=== PATIENT | female | born 1955 | race Caucasian/White ===

== ENCOUNTER 2021-02-22 09:11 | Outpatient (CLI) | payer MEDICARE, OTHER, SELFPAY ==
[2021-02-22 10:11] LABS: Basophils Absolute Auto 0.1 K/mm3 (0.0-0.1); Basophils Percent Auto 0.8 % (0.2-1.2); Eosinophils Absolute Auto 0.1 K/mm3 (0-0.3); Immature Granulocyte Absolute 0.03 K/mm3 (0.00-0.031); Immature Granulocyte Percent A 0.5 % (0-0.5); Lymphocytes Absolute Auto 1.86 K/mm3 (0.9-3.2); Lymphocytes Percent Auto 30.3 % (18.3-44.2); Mean Corpuscular HGB Conc 32.6 g/dl (32-36); Mean Corpuscular Volume 95.1 fl (80-100); Mean Platelet Volume 9.9 fl (7.4-10.4); Monocytes Absolute Auto 0.6 K/mm3 (0.1-0.6); Monocytes Percent Auto 9.1 % (2.6-8.5); Neutrophils Absolute Auto 3.5 K/mm3 (1.3-6.7); Neutrophils Percent Auto 57.3 % (45.5-73.1); Platelet Count Result 233 k/mm3 (150-375); Red Blood Count 4.52 M/mm3 (4.2-5.4); Red Cell Distribution Width 13.5 % (11.5-14.5); White Blood Count 6.1 K/mm3 (4.5-10.0)
[2021-02-22 10:23] LABS: Rheumatoid Factor < 8.6 IU/ML (<12)
[2021-02-22 10:28] LABS: CRP < 0.5 mg/dL (<1.0)
[2021-02-22 12:46] LABS: Erythrocyte Sedimentation Rate 47 mm/hr (0-20)
[2021-02-27 10:31] LABS: Anti Cyclic Citrullinated Pept <16 Units (<20)
== END 2021-02-22 09:12 | disposition home or self-care (01) ==
PROVIDERS: PCP Family Medicine; Visit Provider Orthopaedic Surgery
DX: M17.0 Bilateral primary osteoarthritis of knee (principal); M25.40 Effusion, unspecified joint
CPT/HCPCS: 36415; 85025; 85652; 86038; 86039; 86140; 86200; 86430

== ENCOUNTER 2021-09-30 09:32 | Outpatient (CLI) | payer MEDICARE, OTHER, SELFPAY ==
--- NOTE | ~2021-09-30 | XR_ITS ---
EXAMINATION: XR shoulder RT min 2V EXAM DATE: 09/30/2021 10:59 INDICATION: Arthritis. TECHNIQUE: Right shoulder axillary, frontal projections. There is no prior study for comparison. FINDINGS: There is no glenohumeral joint, mild acromioclavicular joint primary osteoarthritis. There are no acute right shoulder fractures or dislocations identified. There is no subcutaneous gas. The soft tissue is unremarkable. There are no radiopaque foreign bodies. IMPRESSION: Mild right acromioclavicular joint osteoarthritis. Reviewed, dictated and finalized at location B. SEAT COVERER
--- NOTE | ~2021-09-30 | XR_ITS ---
EXAMINATION: XR ankle LT 2V EXAM DATE: 09/30/2021 10:59 INDICATION: Arthritis. TECHNIQUE: Frontal and lateral projections of the left ankle. There is no prior study for compariso n. FINDINGS: There is small left calcaneal inferior spur. The ankle mortise appears intact. There are n o acute fractures or dislocations identified. There is no subcutaneous gas. The soft tissue is unre markable. There are no radiopaque foreign bodies. IMPRESSION: Small left calcaneal spur. Reviewed, dictated and finalized at location B. WEATHERIZING WORKER IMPRESSION: Small left calcaneal spur.
--- NOTE | ~2021-09-30 | XR_ITS ---
EXAMINATION: XR shoulder LT min 2V EXAM DATE: 09/30/2021 10:59 INDICATION: Arthritis. TECHNIQUE: Left shoulder frontal, axillary projections. Correlation is made to contralateral shoulde r same date. FINDINGS: There is mild acromioclavicular joint primary osteoarthritis. Left glenohumeral joint unrem arkable. There are no bony erosions identified. There are no acute fractures or dislocations identifi ed. There is no subcutaneous gas. The soft tissue is unremarkable. There are no radiopaque foreig n bodies. IMPRESSION: Mild left acromioclavicular joint osteoarthritis. Reviewed, dictated and finalized at location B. EL MACHINE OPERATOR
--- NOTE | ~2021-09-30 | XR_ITS ---
EXAMINATION: XR elbow LT 2V EXAM DATE: 09/30/2021 10:59 INDICATION: Arthritis. TECHNIQUE: Frontal and lateral projections of the left elbow Correlation is made to contralateral el bow same date. FINDINGS: Minimal bony productive changes at the epicondyles, enthesopathy less pronounced than cont ralateral side. The left elbow joint space is uniform and symmetric, no bony productive changes or er osions. No evidence of joint effusion. There are no acute fractures or dislocations identified. Ther e is no subcutaneous gas. The soft tissue is unremarkable. There are no radiopaque foreign bodies. IMPRESSION: Minimal left humeral epicondylar enthesopathy. Reviewed, dictated and finalized at location B. HOLOGY TECH
--- NOTE | ~2021-09-30 | XR_ITS ---
EXAMINATION: XR knee LT 2V EXAM DATE: 09/30/2021 10:59 INDICATION: Arthritis. TECHNIQUE: Frontal and lateral projections of the left knee. Correlation is made to contralateral kn ee same date. FINDINGS: There is moderate left knee medial tibiofemoral, mild lateral tibiofemoral and patellofemor al compartment primary osteoarthritis. No joint effusion. There are no acute fractures or dislocatio ns identified. There is no subcutaneous gas. The soft tissue is unremarkable. There are no radiop aque foreign bodies. IMPRESSION: Moderate left medial tibiofemoral compartment osteoarthritis. Reviewed, dictated and finalized at location B. MACIST APPRENTICE
--- NOTE | ~2021-09-30 | XR_ITS ---
EXAMINATION: XR hip BI wo pelvis, XR sacroiliac joints min 3V EXAM DATE: 09/30/2021 10:59 INDICATION: Arthritis. TECHNIQUE: Each hip imaged independently (separate right and also left hip) 'frog leg' and frontal p rojections for interpretation. Frontal and bilateral oblique projections of the sacroiliac joints. FINDINGS: No radiographic evidence of hip avascular necrosis. There is mild symmetric bilateral sacr oiliac and hip primary osteoarthritis. There are no bony erosions identified. There are no acute f ractures or dislocations identified. There is no subcutaneous gas. The soft tissue is unremarkable. There are no radiopaque foreign bodies. IMPRESSION: Mild symmetric bilateral hip, sacroiliac osteoarthritis. Reviewed, dictated and finalized at location B. CE MESSENGER HELPER IMPRESSION: Mild symmetric bilateral hip, sacroiliac osteoarthritis.
--- NOTE | ~2021-09-30 | XR_ITS ---
EXAMINATION: XR knee RT 2V EXAM DATE: 09/30/2021 10:59 INDICATION: Arthritis. TECHNIQUE: Frontal and lateral projections of the right knee. Correlation is made to contralateral k nee same date. FINDINGS: There is mild to moderate right knee medial tibiofemoral, patellofemoral primary osteoarthr itis. There are no acute fractures or dislocations identified. There is no subcutaneous gas. No nelia nt effusion. There are no radiopaque foreign bodies. IMPRESSION: Mild to moderate right knee osteoarthritis. Reviewed, dictated and finalized at location B. ER HOOKER
--- NOTE | ~2021-09-30 | XR_ITS ---
EXAMINATION: XR foot RT 2V EXAM DATE: 09/30/2021 10:59 INDICATION: Arthritis. TECHNIQUE: Frontal and lateral projections of the right foot. Correlation is made to contralateral f oot same date. FINDINGS: Small right calcaneal spur inferiorly. There is mild right 1st metatarsophalangeal joint p rimary osteoarthritis. There are no acute fractures or dislocations identified. There is no subcutan eous gas. The soft tissue is unremarkable. There are no radiopaque foreign bodies. Tibial plafond and anterior well-corticated erosion, correlate with ankle x-ray report same day. IMPRESSION: 1. Mild right 1st MTP osteoarthritis. 2. Small calcaneal spur. Reviewed, dictated and finalized at location B. E MECHANIC
--- NOTE | ~2021-09-30 | XR_ITS ---
EXAMINATION: XR foot LT 2V EXAM DATE: 09/30/2021 10:59 INDICATION: Arthritis. TECHNIQUE: Frontal and lateral projections of the left foot. Correlation is made to contralateral fo ot same date. FINDINGS: There is minimal left foot primary osteoarthritis. Joint space is otherwise uniform and s ymmetric. Small calcaneal spur inferiorly. There are no bony erosions identified. There are no acute fractures or dislocations identified. There is no subcutaneous gas. The soft tissue is unremarkable . There are no radiopaque foreign bodies. IMPRESSION: 1. Minimal left 1st MTP osteoarthritis. 2. Small calcaneal spur. Reviewed, dictated and finalized at location B. TRAINER
--- NOTE | ~2021-09-30 | XR_ITS ---
EXAMINATION: XR ankle RT 2V EXAM DATE: 09/30/2021 10:59 INDICATION: Arthritis. TECHNIQUE: Frontal and lateral projections of the right ankle. Correlation is made to contralateral ankle same date. FINDINGS: There is well-corticated erosion along the right tibial plafond anteriorly. This measures about 7 mm, is a benign finding which could be pressure erosion from noncalcified joint body, or gout (although no evidence of erosions on other joints imaged). This finding could also be caused by loca lized pigmented villonodular synovitis or tenosynovial giant cell tumor. No other erosions identified . There is small right calcaneal spur inferiorly. IMPRESSION: 1. Right tibial plafond periarticular pressure erosion, could be noncalcified joint body, localized PVNS, tenosynovial giant cell tumor. Consider MR ankle without and with contrast. 2. Small calcaneal spur. Reviewed, dictated and finalized at location B. T SUPERVISOR FILM PROCESSING IMPRESSION: 1. Right tibial plafond periarticular pressure erosion, could be noncalcified joint body, localized PVNS, tenosynovial giant cell tumor. Consider MR ankle wi thout and with contrast. 2. Small calcaneal spur.
--- NOTE | ~2021-09-30 | XR_ITS ---
EXAMINATION: XR elbow RT 2V EXAM DATE: 09/30/2021 10:59 INDICATION: Arthritis. TECHNIQUE: Right elbow frontal and lateral projections. Comparison made to contralateral elbow same day. FINDINGS: Mild bony productive change at the right humeral epicondyles, most consistent with enthesop athy. Elbow joint space is maintained and without bony productive changes or erosion. There are no ac [place] fractures or dislocations identified. There is no subcutaneous gas. The soft tissue is unremark able. There are no radiopaque foreign bodies. IMPRESSION: Mild right femoral epicondylar bony productive change, enthesopathy. Reviewed, dictated and finalized at location B. GER OCCUPATIONAL IMPRESSION: Mild right femoral epicondylar bony productive change, enthesopathy .
[2021-09-30 10:46] LABS: Add Urine Microscopic? YES; Appearance Urine Cloudy (Clear); Bilirubin Urine Negative (Negative); Blood Urine Negative (Negative); Color Urine Yellow (Yellow); Glucose Urine UA Negative (Negative); Ketones Urine Negative (Negative); Leukocyte Esterase Ur Trace LEU/UL (NEGATIVE); Mucus Urine Rare /lpf; Nitrate Urine Negative (Negative); Protein Urine 2+ mg/dL (Negative); Specific Grav Ur 1.014 (1.001-1.035); Squamous Epithelial Cell Urine Few /hpf (Few); Transitional Epi Cells Urine Rare /hpf (None Seen); Urobilinogen Urine Negative mg/dL (<2.0)
[2021-09-30 10:47] LABS: Alanine Aminotransferase 20 U/L (4-35); Albumin Level 4.2 g/dL (3.5-5.1); Alkaline Phosphatase 102 U/L (38-126); Anion Gap 7 mmol/L (8-16); Aspartate Amino Transferase 24 U/L (14-36); Bilirubin,Total 0.5 mg/dL (0.2-1.3); Blood Urea Nitrogen 24 mg/dL (7-17); CRP < 0.5 mg/dL (<1.0); Calcium 9.9 mg/dL (8.4-10.2); Carbon Dioxide 26 mmol/L (22-30); Chloride 104 mmol/L (98-107); Creatine Kinase 41 U/L (30-135); Estimated Glomerular Filt Rate > 60; Glucose 118 mg/dL (65-110); Magnesium 1.6 mg/dL (1.6-2.3); Potassium 4.2 mmol/L (3.4-5.0); Sodium 137 mmol/L (137-145); Uric Acid 6.5 mg/dL (2.5-7.5)
[2021-09-30 10:49] LABS: Hemoglobin A1C 5.6 % (<5.7)
[2021-09-30 10:55] LABS: Complement C3 131 mg/dL (88-165)
[2021-09-30 11:02] LABS: Free T4 Free Thyroxine 0.94 ng/mL (0.78-2.19); Vitamin D 25 Hydroxy 97.2 ng/mL
[2021-09-30 11:48] LABS: Folic Acid 13.3 ng/mL (2.76->20)
[2021-09-30 14:55] LABS: Erythrocyte Sedimentation Rate 24 mm/hr (0-20)
[2021-10-02 02:58] LABS: Anti Cardio Antibody IgM <2.0 MPL-U/mL (<20.0); Anti Cardiolipin Antibody IgA <2.0 APL-U/mL (<20.0); Anti Cardiolipin Antibody IgG <2.0 GPL-U/mL (<20.0)
[2021-10-02 18:06] LABS: Complement Total CH50 >60 U/mL (31-60)
[2021-10-03 03:33] LABS: Lupus dRVVT 1:1 Mix Interpreta Not Indicated; Lupus dRVVT Screen 32 sec (<=45); PTT-LA Screen 28 sec (<=40)
[2021-10-03 08:00] LABS: RNP Antibodies <1.0; SS-A <1.0; SS-B <1.0
[2021-10-03 08:59] LABS: Scleroderma 70 Antibody <1.0
== END 2021-09-30 09:33 | disposition home or self-care (01) ==
LOC: ANHLAB 09:45
PROVIDERS: PCP Family Medicine; Visit Provider Internal Medicine Rheumatology
DX: M77.8 Other enthesopathies, not elsewhere classified (principal); M15.9 Polyosteoarthritis, unspecified; R53.83 Other fatigue; E83.42 Hypomagnesemia; R73.09 Other abnormal glucose; E53.8 Deficiency of other specified B group vitamins; E55.9 Vitamin D deficiency, unspecified
CPT/HCPCS: 36415; 72202; 73030; 73070; 73521; 73560; 73600; 73620; 80053; 81001; 82306; 82550; 82607; 82746; 83036; 83520; 83735; 84439; 84443; 84550; 85613; 85652; 85730; 86140; 86146; 86147; 86160; 86162; 86225; 86235

== ENCOUNTER 2021-10-21 09:22 | Outpatient (CLI) | payer MEDICARE, OTHER, SELFPAY ==
--- NOTE | ~2021-10-21 | MR_ITS ---
EXAMINATION: MR lumbar spine wo con DATE: 10/21/2021 10:54 INDICATION: Low back pain TECHNIQUE: Magnetic resonance imaging (MRI) of the lumbar spine was performed without intravenous con trast. Sequences included sagittal T2-weighted FSE, sagittal T2-weighted FS FSE, sagittal T1-weighted FSE, and axial T2-weighted FSE. COMPARISON: None FINDINGS: Alignment is normal. Vertebral body heights are normal. Normal marrow signal. Disc desiccation and m inimal disc height loss at L2-L3 and L4-L5 and mild disc height loss at L3-L4. The conus medullaris t erminates at T12-L1. There is normal signal in the caudal spinal cord. Paravertebral soft tissues are unremarkable. 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 The following disc levels are specifically dis cussed: T12-L1: The disc does not extend beyond the endplate margin. There is mild bilateral facet joint oste oarthritis. There is no neural foraminal stenosis. There is no central canal stenosis. L1-L2: The disc does not extend beyond the endplate margin. There is mild bilateral facet joint osteo arthritis. There is no neural foraminal stenosis. There is no central canal stenosis. L2-L3: Disc is mildly bulging. There is mild left and minimal right facet joint osteoarthritis. There is mild left neural foraminal stenosis. There is minimal central canal stenosis. L3-L4: Disc is mildly bulging. There is mild bilateral facet joint osteoarthritis. There is mild left neural foraminal stenosis. There is minimal central canal stenosis. L4-L5: Disc is mildly bulging. There is mild left and moderate right facet joint osteoarthritis. Ther e is mild to moderate bilateral neural foraminal stenosis. There is mild central canal stenosis. L5-S1: The disc does not extend beyond the endplate margin. There is moderate bilateral facet joint o steoarthritis. There is minimal bilateral neural foraminal stenosis. There is no central canal stenos is. IMPRESSION: 1. Mild lumbar spondylosis. Reviewed, dictated and finalized at location B. TANNER IMPRESSION: 1. Mild lumbar spondylosis.
== END 2021-10-21 09:23 | disposition home or self-care (01) ==
LOC: ANHIMG 09:24
PROVIDERS: PCP Family Medicine; Visit Provider Internal Medicine Rheumatology
DX: M47.896 Other spondylosis, lumbar region (principal)
CPT/HCPCS: 72148

== ENCOUNTER 2023-02-09 06:33 | Inpatient (IN) | payer MEDICARE, OTHER, SELFPAY ==
[2023-02-09] VITALS (12 sets, daily range): BP systolic 105–141; BP diastolic 67–99; PULSE 89–134; RESP 12–24; TEMP 35.9–38; O2SAT 93–98; BMI 47.7
--- NOTE | ~2023-02-09 | US_ITS ---
US renal BI 02/10/2023 13:53 Procedure: Realtime transabdominal ultrasound of the kidneys and bladder. Indication: Abdominal pain. Worsening renal function. Comparison: No prior studies for comparison. Findings: Renal echotexture is normal bilaterally without hydronephrosis, contour deforming mass or r enal calculus. The right kidney measures 10.7 cm and left kidney measures 10.8 cm. There is a Leyav c atheter in the bladder. Impression: 1: Unremarkable renal ultrasound. No stones, masses or hydronephrosis. Reviewed, dictated and finalized at location A. Impression: 1: Unremarkable renal ultrasound. No stones, masses or hydronephrosis.
--- NOTE | ~2023-02-09 | CT_ITS ---
EXAMINATION: CT abdomen pelvis wo con DATE: 02/09/2023 21:00 INDICATION: Generalized abdominal pain and vomiting TECHNIQUE: Computed tomography (CT) of the abdomen and pelvis was performed without intravenous contr ast. The dose-length product (DLP) was 1563.89 mGy-cm. Automated exposure control and iterative recon struction technique were employed. COMPARISON: 11/05/2014 FINDINGS: Minimal dependent atelectasis is present in the lung bases. The heart size is normal. The s tomach is distended. There is fluid material in the distal esophagus. The liver, spleen, pancreas, an d gallbladder are normal. There is mild fat stranding surrounding the adrenal glands are of unclear s ignificance. The kidneys are unremarkable. No pathologically enlarged abdominal or pelvic lymph nodes are identified. No free intraperitoneal gas. The appendix is normal. Colonic diverticulosis is prese nt without evidence of diverticulitis. There is liquid stool throughout much of the colon which can r eflect diarrhea. There is a fat-containing umbilical hernia. IMPRESSION: 1. Fluid-filled and distended stomach of unclear etiology. 2. Diverticulosis without evidence of diverticulitis. 3. Liquid stool throughout much of the colon which could reflect diarrhea. 4. Mild stranding surrounding the adrenal glands are of unclear significance. Reviewed, dictated and finalized at location F.
--- NOTE | ~2023-02-09 | XR_ITS ---
Portable chest x-ray Comparison: 12/23/2018 Clinical History: Shortness of breath Findings: Lungs are clear, without focal consolidation or pleural effusion. Cardiomediastinal silho uette is stable. Bones and soft tissues are unremarkable. Impression: Clear lungs. Reviewed, dictated and finalized at location . Impression: Clear lungs.
[2023-02-09 07:14] LABS: Basophils Percent Auto 0.4 % (0.2-1.2); Hematocrit 52.3 % (37.0-47.0); Hemoglobin 17.1 g/dL (12.0-15.0); Immature Granulocyte Absolute 0.06 K/mm3 (0.00-0.031); Immature Granulocyte Percent A 0.5 % (0-0.5); Lymphocytes Absolute Auto 0.94 K/mm3 (0.9-3.2); Lymphocytes Percent Auto 8.4 % (18.3-44.2); Mean Corpuscular HGB Conc 32.7 g/dl (32-36); Mean Corpuscular Hemoglobin 32.1 pg (26-34); Mean Corpuscular Volume 98.3 fl (80-100); Mean Platelet Volume 9.4 fl (7.4-10.4); Monocytes Absolute Auto 1.2 K/mm3 (0.1-0.6); Monocytes Percent Auto 10.7 % (2.6-8.5); Platelet Count Result 300 k/mm3 (150-375); Red Blood Count 5.32 M/mm3 (4.2-5.4); Red Cell Distribution Width 13.9 % (11.5-14.5); White Blood Count 11.3 K/mm3 (4.5-10.0)
[2023-02-09 07:18] LABS: Alanine Aminotransferase 35 U/L (6-35); Albumin Level 5.2 g/dL (3.5-5.1); Alkaline Phosphatase 86 U/L (38-126); Anion Gap 17 mmol/L (8-16); Aspartate Amino Transferase 32 U/L (14-36); Bilirubin,Total 0.8 mg/dL (0.2-1.3); Blood Urea Nitrogen 39 mg/dL (7-17); Calcium 10.7 mg/dL (8.4-10.2); Carbon Dioxide 16 mmol/L (22-30); Chloride 109 mmol/L (98-107); Estimated CRCL calculation 28 ml/min; Estimated Glomerular Filt Rate 22; Glucose 209 mg/dL (65-110); Lipase 142 U/L (23-300); Potassium 4.4 mmol/L (3.4-5.0); Sodium 142 mmol/L (137-145)
--- NOTE | 2023-02-09 07:20 | ED.NAVMDI ---
HPI - Nausea/Vomiting/Diarrhea General Chief complaint: Nausea/Vomiting/Diarrhea Stated complaint: nausea, vomiting, diarrhea Time Seen by Provider: 02/09/23 07:17 Source: patient Mode of arrival: ambulatory Limitations: no limitations History of Present Illness HPI Narrative: 67 years old white female presented to the ED with the massive nausea, vomiting and diarrhea that started yesterday afternoon at least 15 episodes of each so far. Last diarrhea and vomiting was immediately prior to arrival to the emergency room. She denies any fever, chills, abdominal pain or respiratory symptoms. Patient reports some cramps in the hands and legs and feeling disoriented and tired and weak. Could not manage to take care of herself this morning. Related Data Home Medications Medication Instructions Recorded Confirmed acidophilus 7.5 mg (30 million cap PO 02/18/21 04/01/21 cell)-pectin, citrus 100 mg capsule ascorbate calcium (vitamin C) 500 500 mg PO DAILY 02/18/21 04/01/21 mg tablet ascorbic acid 100 mg-elderberry tablet PO 02/18/21 04/01/21 fruit 50 mg chewable tablet (Airborne (elderberry)) atenolol 100 mg tablet 100 mg PO DAILY 02/18/21 04/01/21 biotin 5,000 mcg disintegrating 10,000 mcg PO DAILY 02/18/21 04/01/21 tablet cholecalciferol (vitamin D3) 125 125 mcg PO DAILY 02/18/21 04/01/21 mcg (5,000 unit) capsule cranberry fruit concentrate 250 mg 250 mg PO TID 02/18/21 04/01/21 chewable tablet (Azo Cranberry) fluticasone furoate 50 inhalation 02/18/21 04/01/21 mcg/actuation blister powder for inhalation lisinopril 20 mg tablet 20 mg PO DAILY 02/18/21 04/01/21 lutein 40 mg capsule 40 mg PO DAILY 02/18/21 04/01/21 omeprazole 20 mg capsule,delayed 20 mg PO DAILY 02/18/21 04/01/21 release taurine 500 mg capsule 500 mg PO BID 02/18/21 04/01/21 turmeric (bulk) 95 % powder ea miscellaneous 02/18/21 04/01/21 (Curcumin) turmeric root extract 500 mg 500 mg PO BID 02/18/21 04/01/21 capsule vitamin E (dl, acetate) 180 mg 400 unit PO DAILY 02/18/21 04/01/21 (400 unit) capsule zinc acetate 50 mg (zinc) capsule 50 mg PO DAILY 02/18/21 04/01/21 (Galzin) Allergies Allergy/AdvReac Type Severity Reaction Status Date / Time Penicillins Allergy Unknown Unknown Verified 02/18/21 11:09 Review of Systems Review of Systems: All systems reviewed & are unremarkable except as noted in HPI and below PMFSH Past Medical History Medical History History of pneumonia (~2018) Surgical History Surgical History History of tubal ligation (~1981) Family History Family History Sibling Hypertension Family history of elevated blood lipids Son Spondylarthritis Social History Social History Smoking status: Never smoker Second hand tobacco smoke exposure: No Alcohol intake: never Exam Narrative: General appearance: Well-developed, well-nourished Skin: Normal color Head: Normocephalic, nontraumatic Eyes: Clear conjunctiva ENT: Oropharynx normal, ears normal, nose normal Neck: Supple, nontender Chest and respiratory: Airway patent, no respiratory distress, no accessory muscle use Heart: Regular rate/rhythm Abdomen: Soft, nontender, no organomegaly, quiet bowel sounds Vascular: Normal peripheral pulses, normal capillary refill. Musculoskeletal: Normal range of motion, nontender back Neurologic: Alert and oriented ?3, CUSTOM SEAMSTRESS is normal as tested, no gross motor deficit Course Reevaluation(s) Reevaluation #1: Feeling a
[2023-02-09] MEDS: SODIUM CHLORIDE 0.9% IV 2,000 ML 999 ML IV CONT (07:32)
[2023-02-09 08:15] LABS: SARS-CoV-2 RNA PCR Negative
--- NOTE | 2023-02-09 08:27 | PC.NURSE ---
pt states is feeling much better. nausea/vomiting resolved. continues to have abd soreness and diarrhea.
[2023-02-09 09:25] LABS: Appearance Urine Turbid (Clear); Bacteria Urine None Seen /hpf; Bilirubin Urine Negative (Negative); Blood Urine 2+ (Negative); Color Urine Dark Yellow (Yellow); Glucose Urine UA Negative (Negative); Hyaline Casts Urine Present /lpf; Ketones Urine Trace mg/dL (Negative); Leukocyte Esterase Ur 1+ LEU/UL (Negative); Nitrate Urine Negative (Negative); Non Pathogenic Casts >20; Protein Urine 3+ mg/dL (Negative); Specific Grav Ur 1.018 (1.001-1.035); Squamous Epithelial Cell Urine Many /hpf (Few); Urobilinogen Urine 0.2 mg/dL (<2.0)
[2023-02-09 09:26] LABS: Add Urine Microscopic? YES
--- NOTE | 2023-02-09 09:54 | ADMGEN ---
This patient, Shelly Mckeon, was admitted to [address] [place] [address] Room 307-02 at 0910. Patient/family oriented to hospital policies and general routines including ID bracelet, bed and alarms, visiting hours, pain management, procedures, bathroom and other care routines, personal items, smoking policy, room service/diet, and visiting hours. Information on how to activate the Rapid Response Team has been discussed. Patient/Family are encouraged to report perceived risks to care and to ask questions if they do not understand what they are told or what they should do.
[2023-02-09] MEDS: SODIUM CHLORIDE 0.9% IV 1,000 ML 200 ML IV CONT ×2 (10:18→18:21)
[2023-02-09] MEDS: ONDANSETRON INJ 4 MG/2 ML VIAL IV PUSH ×2 (10:18→18:21)
--- NOTE | 2023-02-09 12:45 | PM.IMHP ---
H&P: HPI History of Present Illness Date/Time: 02/09/23 12:45 Chief Complaint: Nausea, vomiting, diarrhea. Narrative: This is a 59-year-old female with hypertension and hyperlipidemia who presented to the emergency department from home for evaluation of nausea, vomiting, and diarrhea. Patient provides the following history. She and her went out to eat yesterday and ate essentially the same thing however she had cheese sauce on her meal and he did not. Within a couple of hours she developed diffuse abdominal cramps, nausea, vomiting, and diarrhea. She has had innumerable bouts of nonbloody and non biliary emesis in addition to 15 or more diarrheal stools. The stools are watery and malodorous admixed with some mucus and later today she did notice a slight pink tinged in some the stool. Today she has been extremely weak and reports mild shortness of breath and cramping in her hands and legs. She denies fever but endorses some chills. No respiratory symptoms. She has not been on any antibiotics recently. She denies sick contacts and recent travel. She has not prepared or eaten raw food recently. She was afebrile on arrival to the emergency department with a blood pressure of 105/69. Pertinent labs include a WBC count of 1.3, hemoglobin 17.1, sodium 142, potassium 4.4, chloride 109, carbon dioxide 16, BUN 39, creatinine 2.20, calcium 10.7, total protein 9.0. In the ED she received 2 L of fluid and ondansetron with some improvement in her symptoms. She is being admitted in this setting for hydration and further workup. Review of Systems Review of Systems: Twelve systems were reviewed and are negative except for as per HPI. [facility] Past Medical History Medical History Degenerative disc disease Diverticulitis Fibromyalgia Gastroesophageal reflux disease Hyperlipidemia Hypertension Kidney stones Osteoarthritis Surgical History Surgical History History of colonoscopy (10/2011) Internal hemorrhoids and diverticulosis. Per Dr. Granados. History of tubal ligation (1981) Family History Family History Sibling Hypertension Family history of elevated blood lipids Son Spondylarthritis Social History Social History Social History: Surrogate medical decision maker: Jr Mckeon, spouse. Code status: Full code. Smoking status: Never smoker Second hand tobacco smoke exposure: No Alcohol intake: never Substance use: never Substance use type: does not use Lack of Transportation: No Lack of Food: Never True Current Housing: I Have Housing Concerned About Future Housing: No Difficulty Paying Gas/Electric Bills: No Difficulty Paying for Meds: No Currently Unemployed: No Education: High School Diploma/GED Difficulty w/ Childcare or Family Care: No Living arrangements: with family Occupation/Education: retired Spiritual care concerns: No Agree to blood products: No Meds Home Medications and Allergies Home Medications Medication Instructions Recorded Confirmed Type acidophilus 7.5 mg (30 million 1 cap PO DAILY 02/18/21 02/09/23 History cell)-pectin, citrus 100 mg capsule ascorbate calcium (vitamin C) 500 500 mg PO DAILY 02/18/21 02/09/23 History mg tablet ascorbic acid 100 mg-elderberry 1 tablet PO DAILY 02/18/21 02/09/23 History fruit 50 mg chewable tablet (Airborne (elderberry)) atenolol 100 mg tablet 100 mg PO DAILY 02/18/21 02/09/23 History biotin 5,000 mcg disintegrating 10,000 mcg PO DAILY 02/18/21 02/09/23 History tablet cholecalciferol (vitamin D3) 125 125 mcg PO DAILY 02/18/21 02/09/23 History mcg (5,000 unit) capsule cranberry fruit concentrate 250 mg 250 mg PO DAILY 02/18/21 02/09/23 History chewable tablet (Azo Cranberry)
[2023-02-09 15:19] LABS: Anion Gap 13 mmol/L (8-16); Blood Urea Nitrogen 39 mg/dL (7-17); Calcium 9.6 mg/dL (8.4-10.2); Carbon Dioxide 16 mmol/L (22-30); Chloride 115 mmol/L (98-107); Estimated CRCL calculation 36 ml/min; Estimated Glomerular Filt Rate 30; Glucose 150 mg/dL (65-110); Magnesium 1.6 mg/dL (1.6-2.3); Potassium 4.1 mmol/L (3.4-5.0); Sodium 144 mmol/L (137-145)
[2023-02-09 16:51] LABS: Toxigenic C. Diff NEGATIVE (NEGATIVE)
[2023-02-09] MEDS: SIMVASTATIN 20 MG TABLET PO (21:15)
[2023-02-09] MEDS: LOPERAMIDE HCL 2 MG CAPSULE 4 MG PO (21:15)
[2023-02-09] MEDS: LACTATED RINGERS 1,000 ML 125 ML IV CONT (21:20)
[2023-02-10] MEDS: LOPERAMIDE HCL 2 MG CAPSULE 4 MG PO (04:04)
[2023-02-10] MEDS: LACTATED RINGERS 1,000 ML 125 ML IV CONT ×3 (04:05→20:31)
[2023-02-10 05:27] VITALS: BP 136/100; PULSE 118; RESP 14; TEMP 37.7; O2SAT 93
[2023-02-10 06:54] LABS: Alanine Aminotransferase 29 U/L (6-35); Albumin Level 3.4 g/dL (3.5-5.1); Alkaline Phosphatase 40 U/L (38-126); Anion Gap 12 mmol/L (8-16); Aspartate Amino Transferase 55 U/L (14-36); Bilirubin,Total 0.6 mg/dL (0.2-1.3); Blood Urea Nitrogen 49 mg/dL (7-17); Calcium 8.3 mg/dL (8.4-10.2); Carbon Dioxide 15 mmol/L (22-30); Chloride 106 mmol/L (98-107); Estimated CRCL calculation 18 ml/min; Estimated Glomerular Filt Rate 13; Glucose 123 mg/dL (65-110); Magnesium 1.1 mg/dL (1.6-2.3); Potassium 3.7 mmol/L (3.4-5.0); Sodium 133 mmol/L (137-145)
[2023-02-10 06:55] LABS: Hemoglobin A1C 5.5 % (<5.7)
[2023-02-10 07:49] LABS: Free T4 Free Thyroxine Reflex 0.85 ng/dL (0.78-2.19)
[2023-02-10 08:00] VITALS: BP 88/50; PULSE 105; RESP 20; TEMP 36.6; O2SAT 93
[2023-02-10 08:35] LABS: Hematocrit 40.3 % (37.0-47.0); Mean Corpuscular HGB Conc 32.3 g/dl (32-36); Mean Corpuscular Hemoglobin 32.1 pg (26-34); Mean Corpuscular Volume 99.5 fl (80-100); Mean Platelet Volume 9.7 fl (7.4-10.4); Platelet Count Result 192 k/mm3 (150-375); Red Blood Count 4.05 M/mm3 (4.2-5.4); White Blood Count 13.5 K/mm3 (4.5-10.0)
[2023-02-10 08:43] LABS: Lactic Acid Reflex 1.6 mmol/L (0.7-2.0)
--- NOTE | 2023-02-10 08:45 | PM.IMPN ---
Progress Note: A&P Assessment and Plan (1) Severe sepsis: Code(s): A41.9 - Sepsis, unspecified organism; R65.20 - Severe sepsis without septic shock Status: Acute Assessment and Plan: meets SIRS criteria with fever of 100.4, tachycardia, hypotension, tachypnea, leukocytosis, source of infection source of infection is GI nature organ dysfunction noted with a creatinine of 3.5 and hypotension WBCs elevated at 13.5 Blood cultures ordered Stool cultures pending procalcitonin elevated at 48.3 start patient on Levaquin and Flagyl deescalate antibiotics as appropriate Cheetah indicated fluid responsiveness with a 13.5% fluid resuscitated with 3 L of LR and maintenance fluid (2) Acute kidney injury: Code(s): N17.9 - Acute kidney failure, unspecified Status: Acute Assessment and Plan: BUN and creatinine slightly elevated upon admission at at 39/1.70 labs this morning indicated up Trend with a BUN of 49 and creatinine 3.50 urine labs obtained Fena score indicated pre Renal 3L of LR given renal dose medications and avoid nephrotoxic medications renal ultrasound was unremarkable if no improvement noted consult Nephrology for further support continue trend labs adjust therapy as indicated (3) Gastroenteritis: Code(s): K52.9 - Noninfective gastroenteritis and colitis, unspecified Status: Acute Assessment and Plan: Abdominal pelvis CT showed fluid-filled and distended stomach of unclear etiology, liquid stool throughout much of the colon reflecting diarrhea started Levaquin and Flagyl WBCs elevated at 13.5 continue trend labs deescalate antibiotics as indicated (4) Hyperglycemia: Code(s): R73.9 - Hyperglycemia, unspecified Status: Acute Assessment and Plan: glucose 123 A1c 5.5 continue trend labs stable (5) Hypertension: Code(s): I10 - Essential (primary) hypertension Status: Acute Assessment and Plan: notable hypotension with a blood pressure of 80 systolic hold antihypertensives for now and restart when appropriate continue trend labs adjust therapy as indicated (6) Hyperlipidemia: Code(s): E78.5 - Hyperlipidemia, unspecified Status: Acute Assessment and Plan: Continue statin. LFTs within normal limits. (7) Gastroesophageal reflux disease: Code(s): K21.9 - Gastro-esophageal reflux disease without esophagitis Status: Acute Assessment and Plan: Continue omeprazole. Plan TSH is noted to be low however most likely related to disease process will need to repeat in 4 weeks magnesium 1.1 replace with 4 g Time Spent With Patient Time: 40 minutes of critical care time spent with the patient at bedside running test, stabilization 70 minutes total with patient Time with patient: Greater than 35 minutes Subjective Date/time seen: 02/10/23844 Interval history: 02/10/23844 Patient is not having a good morning. Was called to the floor to evaluate the patient. Patient was noted to have a blood pressure in the 80 systolic. She also was complaining of a little bit of pain in just seemed to be dozing in an out. Bladder scan was performed and showed 100 mL however urinary catheter was inserted for more accurate I's and O's. She did was also performed and showed a cardiac index of 3.1, heart rate of 102, and a percentage of 13.5 indicating that the patient was fluid responsive. Lactic was 1.6 however did give 30 milligrams/kilogram of fluids or 3 L of lactated Ringer's. Patient did respond to the fluids and her blood pressure did stabilize. Patient kept complaining of pain while breathing and stated that she was having mostly her pain in the epigastric region. She denies any current chest
--- NOTE | 2023-02-10 08:45 | P.PNIM_ITS ---
Progress Note: A&P Assessment and Plan (1) Severe sepsis: Code(s): A41.9 - Sepsis, unspecified organism; R65.20 - Severe sepsis without septic shock Status: Acute Assessment and Plan: * meets SIRS criteria with fever of 100.4, tachycardia, hypotension, tachypnea, leukocytosis, source of infection * source of infection is GI nature * organ dysfunction noted with a creatinine of 3.5 and hypotension * WBCs elevated at 13.5 * Blood cultures ordered * Stool cultures pending * procalcitonin elevated at 48.3 * start patient on Levaquin and Flagyl * deescalate antibiotics as appropriate * Cheetah indicated fluid responsiveness with a 13.5% * fluid resuscitated with 3 L of LR and maintenance fluid (2) Acute kidney injury: Code(s): N17.9 - Acute kidney failure, unspecified Status: Acute Assessment and Plan: * BUN and creatinine slightly elevated upon admission at at 39/1.70 * labs this morning indicated up Trend with a BUN of 49 and creatinine 3.50 * urine labs obtained * Fena score indicated pre Renal * 3L of LR given * renal dose medications and avoid nephrotoxic medications * renal ultrasound was unremarkable * if no improvement noted consult Nephrology for further support * continue trend labs * adjust therapy as indicated (3) Gastroenteritis: Code(s): K52.9 - Noninfective gastroenteritis and colitis, unspecified Status: Acute Assessment and Plan: * Abdominal pelvis CT showed fluid-filled and distended stomach of unclear etiology, liquid stool throughout much of the colon reflecting diarrhea * started Levaquin and Flagyl * WBCs elevated at 13.5 * continue trend labs * deescalate antibiotics as indicated (4) Hyperglycemia: Code(s): R73.9 - Hyperglycemia, unspecified Status: Acute Assessment and Plan: * glucose 123 * A1c 5.5 * continue trend labs * stable (5) Hypertension: Code(s): I10 - Essential (primary) hypertension Status: Acute Assessment and Plan: * notable hypotension with a blood pressure of 80 systolic * hold antihypertensives for now and restart when appropriate * continue trend labs * adjust therapy as indicated (6) Hyperlipidemia: Code(s): E78.5 - Hyperlipidemia, unspecified Status: Acute Assessment and Plan: * Continue statin. LFTs within normal limits. (7) Gastroesophageal reflux disease: Code(s): K21.9 - Gastro-esophageal reflux disease without esophagitis Status: Acute Assessment and Plan: * Continue omeprazole. Plan TSH is noted to be low however most likely related to disease process will need to repeat in 4 weeks magnesium 1.1 replace with 4 g Time Spent With Patient Time: 40 minutes of critical care time spent with the patient at bedside running test, stabilization 70 minutes total with patient Time with patient: Greater than 35 minutes Subjective Date/time seen: 02/10/23844 Interval history: 02/10/23844 Patient is not having a good morning. Was called to the floor to evaluate the patient. Patient was noted to have a blood pressur
[2023-02-10] MEDS: MAGNESIUM SULF 4 GM/WATER100ML 4 GM/100 ML BAG IVPB (08:59)
[2023-02-10] MEDS: LACTATED RINGERS 1,000 ML 999 ML IV CONT ×3 (08:59→10:33)
[2023-02-10 09:08] LABS: Total Triiodothyronine (T3) 0.49 NG/ML (0.97-1.69)
[2023-02-10 09:18] LABS: Creatinine Urine 172.1 mg/dL; Urea Random Urine 568 MG/DL
[2023-02-10 09:22] LABS: Sodium Urine Random 36 meq/L
[2023-02-10 09:23] LABS: Band Neutrophils Percent 32 % (0-6); Lymphocytes Absolute Manual 1.35 K/mm3 (1.1-4.5); Monocytes Absolute Manual 1.08 K/mm3 (0.1-0.90); Monocytes Percent Manual 8 % (3-9); Myelocytes Percent 1 %; Neutrophils Absolute Manual 10.93 K/mm3 (1.7-7.2); Neutrophils Percent Manual 49 % (46-73); Platelet Estimate Adequate (Adequate); Schistocytes None Seen (NORMAL); Total Cells Counted 100
[2023-02-10 09:24] LABS: Anisocytosis 1+ (NORMAL)
[2023-02-10 09:48] LABS: Procalcitonin 48.3 ng/mL
[2023-02-10] MEDS: PANTOPRAZOLE 40 MG TABLET PO (10:36)
[2023-02-10 12:10] VITALS: BP 102/60; PULSE 96; RESP 24; O2SAT 96
[2023-02-10 14:00] VITALS: BP 128/100; PULSE 99; RESP 22; TEMP 37.3; O2SAT 95
[2023-02-10 16:15] LABS: Alanine Aminotransferase 38 U/L (6-35); Albumin Level 3.1 g/dL (3.5-5.1); Alkaline Phosphatase 40 U/L (38-126); Anion Gap 9 mmol/L (8-16); Aspartate Amino Transferase 104 U/L (14-36); Bilirubin,Total 0.7 mg/dL (0.2-1.3); Blood Urea Nitrogen 48 mg/dL (7-17); Calcium 7.7 mg/dL (8.4-10.2); Carbon Dioxide 17 mmol/L (22-30); Chloride 103 mmol/L (98-107); Estimated CRCL calculation 22 ml/min; Estimated Glomerular Filt Rate 17; Glucose 93 mg/dL (65-110); Potassium 3.9 mmol/L (3.4-5.0); Sodium 129 mmol/L (137-145)
[2023-02-10] MEDS: metroNIDAZOLE 500 MG/ISO 100ML 500 MG/100 ML BAG 100 MG IVPB (17:38)
[2023-02-10] MEDS: SIMVASTATIN 20 MG TABLET PO (20:28)
[2023-02-10 22:00] VITALS: BP 110/59; PULSE 78; RESP 16; TEMP 37.6; O2SAT 97
[2023-02-11] VITALS (8 sets, daily range): BP systolic 96–128; BP diastolic 52–84; PULSE 80–103; RESP 16–18; TEMP 36.4–37.2; O2SAT 95–98
[2023-02-11] MEDS: metroNIDAZOLE 500 MG/ISO 100ML 500 MG/100 ML BAG 100 MG IVPB ×3 (00:10→16:40)
[2023-02-11] MEDS: LACTATED RINGERS 1,000 ML 125 ML IV CONT ×2 (05:47→16:39)
[2023-02-11 06:05] LABS: Alanine Aminotransferase 48 U/L (6-35); Albumin Level 2.9 g/dL (3.5-5.1); Alkaline Phosphatase 43 U/L (38-126); Anion Gap 9 mmol/L (8-16); Aspartate Amino Transferase 130 U/L (14-36); Bilirubin,Total 0.5 mg/dL (0.2-1.3); Blood Urea Nitrogen 44 mg/dL (7-17); Calcium 8.1 mg/dL (8.4-10.2); Carbon Dioxide 17 mmol/L (22-30); Chloride 107 mmol/L (98-107); Estimated CRCL calculation 27 ml/min; Estimated Glomerular Filt Rate 21; Glucose 72 mg/dL (65-110); Magnesium 2.2 mg/dL (1.6-2.3); Potassium 3.8 mmol/L (3.4-5.0); Sodium 133 mmol/L (137-145)
[2023-02-11 06:19] LABS: Hematocrit 35.8 % (37.0-47.0); Hemoglobin 11.9 g/dL (12.0-15.0); Mean Corpuscular HGB Conc 33.2 g/dl (32-36); Mean Corpuscular Hemoglobin 32.7 pg (26-34); Mean Corpuscular Volume 98.4 fl (80-100); Mean Platelet Volume 9.7 fl (7.4-10.4); Platelet Count Result 150 k/mm3 (150-375); Red Blood Count 3.64 M/mm3 (4.2-5.4); White Blood Count 11.1 K/mm3 (4.5-10.0)
[2023-02-11 07:20] LABS: Band Neutrophils Percent 39 % (0-6); Lymphocytes Absolute Manual 0.77 K/mm3 (1.1-4.5); Lymphocytes Percent Manual 7 % (18-44); Monocytes Absolute Manual 0.77 K/mm3 (0.1-0.90); Monocytes Percent Manual 7 % (3-9); Neutrophils Absolute Manual 9.54 K/mm3 (1.7-7.2); Neutrophils Percent Manual 47 % (46-73); Platelet Estimate Adequate (Adequate); Schistocytes None Seen (NORMAL); Total Cells Counted 100
[2023-02-11] MEDS: PANTOPRAZOLE 40 MG TABLET PO (08:18)
--- NOTE | 2023-02-11 16:48 | PM.IMPN ---
Progress Note: A&P Assessment and Plan (1) Acute kidney injury: Code(s): N17.9 - Acute kidney failure, unspecified Status: Acute Assessment and Plan: Likely due to profound dehydration given emesis and diarrhea. Cr elevated up to 3.5 on admission, improved to 2.3 today Continue with IV fluids Renal US unremarkable Consider nephrology consult if no improvement/worsening Monitor BMP (2) Gastroenteritis: Code(s): K52.9 - Noninfective gastroenteritis and colitis, unspecified Status: Acute Assessment and Plan: Likely viral. CT a/p with fluid filled/distended stomach Stool studies reviewed, negative to date Blood cultures pending Continue with levaquin and flagyl (3) Dehydration: Code(s): E86.0 - Dehydration Status: Acute Assessment and Plan: Continue with IV fluids until better tolerating diet (4) Hyperglycemia: Code(s): R73.9 - Hyperglycemia, unspecified Status: Acute Assessment and Plan: A1c is 5.5. No need for further monitoring. (5) Hypertension: Code(s): I10 - Essential (primary) hypertension Status: Acute Assessment and Plan: Blood pressures have remained stable. Continue atenolol (6) Hyperlipidemia: Code(s): E78.5 - Hyperlipidemia, unspecified Status: Acute Assessment and Plan: LFTs within normal limits. Continue statin (7) Gastroesophageal reflux disease: Code(s): K21.9 - Gastro-esophageal reflux disease without esophagitis Status: Acute Assessment and Plan: Continue PPI Subjective Date/time seen: 02/11/23 16:48 Interval history: date of service: 02/11/2023 Shelly Mckeon is a 67 year old female with a history of hypertension, hyperlipidemia, GERD, diverticulitis, and fibromyalgia who is seen in follow up for gastroenteritis. States this was due to eating indian food at a restaurant on Thursday. States she is starting to feel better but still has frequent, liquid, brownish yellow stools. Reports episodes are becoming slightly less frequent. No abdominal pain. No nausea or vomiting. She is tolerating clear liquids. Denies shortness of breath, cough, or chest pain. Occasional lightheadedness but improving. No additional concerns. Review of Systems Review of Systems: All systems reviewed & are unremarkable except as noted in HPI and below Exam Narrative: General: well-nourished, well-appearing 67-year-old female, sitting up in bed, comfortable, NARD Neuro: awake, alert and oriented x4, speech clear, no focal neuro deficits noted HEENMT: normocephalic, atraumatic, EOMI, sclerae anicteric, moist oral mucosa Respiratory: clear to auscultation bilaterally, nonlabored breathing Cardio: regular rate, regular rhythm with S1-S2 Abdomen: protuberant, normoactive bowel sounds, soft, nontender to palpation Extremities: no edema, erythema, or tenderness to palpation, DP pulses 2+ bilaterally Skin: no rashes or lesions, warm and dry Psych: appropriate mood and affect, judgment and insight intact Objective Data Vital Signs Vital Signs: Vital Signs - 24 hr 02/10/23 22:00 02/11/23 05:52 02/11/23 08:00 Temperature 99.6 F 98.9 F Pulse Rate 78 103 H Respiratory Rate 16 18 Blood Pressure 110/59 L 128/84 Pulse Oximetry 97 95 Oxygen Delivery Room Air 02/11/23 10:28 02/11/23 10:29 02/11/23 10:29 Temperature 98.0 F Pulse Rate 99 Respiratory Rate 18 Blood Pressure 122/68 96/68 L 110/84 Pulse Oximetry 96 Oxygen Delivery 02/11/23 14:00 Temperature 97.6 F Pulse Rate 87 Respiratory Rate 18 Blood Pressure 119/63 Pulse Oximetry 97 Oxygen Delivery Intake/Output Intake/Output: Intake & Output 02/08/23 02/09/23 02/10/23 02/11/23 23:59 23:59 23:59 23:59 Intake Total 4658 8364 3080 Output Total 820 199 4418 Balance 4492 5838 -9201 Meds/Results Medications: Active Medications Generic Nam
[2023-02-11] MEDS: SIMVASTATIN 20 MG TABLET PO (20:07)
[2023-02-12] VITALS (10 sets, daily range): BP systolic 113–149; BP diastolic 67–92; PULSE 78–99; RESP 14–18; TEMP 36.1–36.4; O2SAT 94–99
[2023-02-12] MEDS: metroNIDAZOLE 500 MG/ISO 100ML 500 MG/100 ML BAG 100 MG IVPB ×3 (00:07→17:49)
[2023-02-12] MEDS: LACTATED RINGERS 1,000 ML 125 ML IV CONT ×2 (00:09→12:37)
[2023-02-12 09:40] LABS: Hematocrit 34.7 % (37.0-47.0); Hemoglobin 11.3 g/dL (12.0-15.0); Mean Corpuscular HGB Conc 32.6 g/dl (32-36); Mean Corpuscular Hemoglobin 31.7 pg (26-34); Mean Corpuscular Volume 97.2 fl (80-100); Mean Platelet Volume 9.7 fl (7.4-10.4); Platelet Count Result 134 k/mm3 (150-375); Red Blood Count 3.57 M/mm3 (4.2-5.4); Red Cell Distribution Width 13.8 % (11.5-14.5); White Blood Count 7.1 K/mm3 (4.5-10.0)
[2023-02-12] MEDS: PANTOPRAZOLE 40 MG TABLET PO (09:48)
[2023-02-12 09:50] LABS: Anion Gap 6 mmol/L (8-16); Blood Urea Nitrogen 28 mg/dL (7-17); Calcium 8.8 mg/dL (8.4-10.2); Carbon Dioxide 22 mmol/L (22-30); Chloride 112 mmol/L (98-107); Estimated CRCL calculation 39 ml/min; Estimated Glomerular Filt Rate 32; Glucose 98 mg/dL (65-110); Potassium 3.4 mmol/L (3.4-5.0); Sodium 140 mmol/L (137-145)
[2023-02-12] MEDS: LOPERAMIDE HCL 2 MG CAPSULE 4 MG PO (09:53)
--- NOTE | 2023-02-12 13:00 | PM.IMPN ---
Progress Note: A&P Assessment and Plan (1) Acute kidney injury: Code(s): N17.9 - Acute kidney failure, unspecified Status: Acute Assessment and Plan: Likely due to profound dehydration given emesis and diarrhea. Cr elevated up to 3.5 on admission, improved to 1.6 today Creatinine is near baseline at this time and patient is tolerating p.o. intake. Will discontinue IV fluids Renal US unremarkable Monitor BMP (2) Gastroenteritis: Code(s): K52.9 - Noninfective gastroenteritis and colitis, unspecified Status: Acute Assessment and Plan: Likely viral. CT a/p with fluid filled/distended stomach Stool cultures are negative Blood cultures negative today Continue with levaquin and flagyl (3) Dehydration: Code(s): E86.0 - Dehydration Status: Acute Assessment and Plan: resolved. Patient is tolerating oral intake at this time. (4) Hyperglycemia: Code(s): R73.9 - Hyperglycemia, unspecified Status: Acute Assessment and Plan: A1c is 5.5. No need for further monitoring. (5) Hypertension: Code(s): I10 - Essential (primary) hypertension Status: Acute Assessment and Plan: Blood pressures have remained stable. Continue atenolol (6) Hyperlipidemia: Code(s): E78.5 - Hyperlipidemia, unspecified Status: Acute Assessment and Plan: LFTs within normal limits. Continue statin (7) Gastroesophageal reflux disease: Code(s): K21.9 - Gastro-esophageal reflux disease without esophagitis Status: Acute Assessment and Plan: Continue PPI Plan PT/OT eval appreciated given patient complaints of weakness remove Leyva catheter today and proceed with voiding trial Subjective Date/time seen: 02/12/23 13:00 Interval history: date of service: 02/11/2023 Shelly Mckeon is a 67 year old female with a history of hypertension, hyperlipidemia, GERD, diverticulitis, and fibromyalgia who is seen in follow up for gastroenteritis. she is feeling better today. She has no abdominal pain. States that her diarrhea is improving, still endorses loose stools but seems to be becoming more formed and less frequent. She is tolerating clear liquids. She does endorse feeling weak and having trouble getting around. No issues with her Leyva catheter. Denies dizziness or lightheadedness. Review of Systems Review of Systems: All systems reviewed & are unremarkable except as noted in HPI and below Exam Narrative: General: well-nourished, well-appearing 67-year-old female, sitting up in bed, comfortable, NARD Neuro: awake, alert and oriented x4, speech clear, no focal neuro deficits noted HEENMT: normocephalic, atraumatic, EOMI, sclerae anicteric, moist oral mucosa Respiratory: clear to auscultation bilaterally, nonlabored breathing Cardio: regular rate, regular rhythm with S1-S2 Abdomen: protuberant, normoactive bowel sounds, soft, nontender to palpation Extremities: no edema, erythema, or tenderness to palpation, DP pulses 2+ bilaterally Skin: no rashes or lesions, warm and dry Psych: appropriate mood and affect, judgment and insight intact Objective Data Vital Signs Vital Signs: Vital Signs - 24 hr 02/11/23 14:00 02/11/23 20:00 02/11/23 22:00 Temperature 97.6 F 98.0 F 98.0 F Pulse Rate 87 80 80 Respiratory Rate 18 16 16 Blood Pressure 119/63 118/52 L 118/52 L Pulse Oximetry 97 96 96 Oxygen Delivery 02/11/23 22:07 02/11/23 22:10 02/12/23 05:52 Temperature 98.0 F 98.0 F 97.1 F L Pulse Rate 90 90 78 Respiratory Rate 16 16 14 Blood Pressure 109/82 98/58 L 138/67 Pulse Oximetry 98 97 99 Oxygen Delivery 02/12/23 08:32 Temperature Pulse Rate Respiratory Rate Blood Pressure Pulse Oximetry 94 Oxygen Delivery Room Air Intake/Output Intake/Output: Intake & Output 02/09/23 02/10/23 02/11/23 02/12/23 23:59 23:59 23:59 23:59 Intake Total 464
--- NOTE | 2023-02-12 15:42 | PCCCNOTE ---
On 02/12/23, the student, [Sherron Solis], provided care and completed [facility] documentation on this patient. I have reviewed the student's documentation and agree with the findings.
[2023-02-12 16:28] LABS: Osmolality, Urine 424 mOsm/kg (50-1200)
[2023-02-12] MEDS: SIMVASTATIN 20 MG TABLET PO (21:20)
[2023-02-13] MEDS: metroNIDAZOLE 500 MG/ISO 100ML 500 MG/100 ML BAG 100 MG IVPB ×2 (00:39→08:57)
[2023-02-13 05:10] VITALS: BP 126/93; PULSE 82; RESP 16; TEMP 36.2; O2SAT 98
[2023-02-13 06:57] LABS: Hematocrit 33.8 % (37.0-47.0); Hemoglobin 11.1 g/dL (12.0-15.0); Immature Platelet Fraction Pct 1.9 % (0.9-11.2); Mean Corpuscular HGB Conc 32.8 g/dl (32-36); Mean Corpuscular Volume 97.4 fl (80-100); Mean Platelet Volume 9.7 fl (7.4-10.4); Platelet Count Result 137 k/mm3 (150-375); Red Blood Count 3.47 M/mm3 (4.2-5.4); Red Cell Distribution Width 13.7 % (11.5-14.5); White Blood Count 5.4 K/mm3 (4.5-10.0)
[2023-02-13 07:05] LABS: Anion Gap 5 mmol/L (8-16); Blood Urea Nitrogen 19 mg/dL (7-17); Calcium 8.6 mg/dL (8.4-10.2); Carbon Dioxide 25 mmol/L (22-30); Chloride 110 mmol/L (98-107); Estimated CRCL calculation 48 ml/min; Estimated Glomerular Filt Rate 41; Glucose 100 mg/dL (65-110); Potassium 3.2 mmol/L (3.4-5.0); Sodium 140 mmol/L (137-145)
[2023-02-13 08:00] VITALS: BP 146/84; PULSE 98; RESP 16; TEMP 36.5; O2SAT 96
[2023-02-13] MEDS: POTASSIUM CHLORIDE 20 MEQ TABLET PO (08:56)
[2023-02-13] MEDS: PANTOPRAZOLE 40 MG TABLET PO (08:57)
[2023-02-13 09:33] LABS: Magnesium 1.7 mg/dL (1.6-2.3)
[2023-02-13 09:34] LABS: Alanine Aminotransferase 46 U/L (6-35); Albumin Level 2.7 g/dL (3.5-5.1); Alkaline Phosphatase 45 U/L (38-126); Aspartate Amino Transferase 68 U/L (14-36); Bilirubin,Total 0.4 mg/dL (0.2-1.3)
[2023-02-13 12:30] VITALS: BP 146/95; PULSE 106; RESP 16; TEMP 36.5; O2SAT 96
[2023-02-13 13:00] VITALS: BP 125/82; PULSE 113; RESP 16; TEMP 36.5; O2SAT 96
--- NOTE | 2023-02-13 13:14 | PM.DS ---
DS: Admitting Diagnosis Discharge Date 02/13/2023 Admitting Diagnosis Gastroenteritis DS: Discharge Diagnosis Discharge Diagnosis (1) Acute kidney injury: Code(s): N17.9 - Acute kidney failure, unspecified Status: Acute Assessment and Plan: Likely due to profound dehydration given emesis and diarrhea. Cr elevated up to 3.5 on admission Improved with IV fluid rehydration Cr down to 1.3 at time of discharge, near baseline Renal US unremarkable (2) Gastroenteritis: Code(s): K52.9 - Noninfective gastroenteritis and colitis, unspecified Status: Acute Assessment and Plan: Likely viral. CT a/p with fluid filled/distended stomach Stool cultures negative Blood cultures negative Received levaquin and flagyl which she will continue as an outpatient to complete course (3) Dehydration: Code(s): E86.0 - Dehydration Status: Acute Assessment and Plan: Secondary to above. Resolved. Patient tolerating oral intake at this time. (4) Hyperglycemia: Code(s): R73.9 - Hyperglycemia, unspecified Status: Acute Assessment and Plan: A1c is 5.5. No need for further monitoring. (5) Hypertension: Code(s): I10 - Essential (primary) hypertension Status: Acute Assessment and Plan: Blood pressures remained stable. Continue atenolol (6) Gastroesophageal reflux disease: Code(s): K21.9 - Gastro-esophageal reflux disease without esophagitis Status: Acute Assessment and Plan: Continue PPI (7) Transaminitis: Code(s): R74.01 - Elevation of levels of liver transaminase levels Status: Acute Assessment and Plan: LFTs slightly elevated on admission with downward trend. Possibly secondary to acute illness. Near normal at time of discharge. Plan Potassium supplemented. Anticipate resolution as pt is now tolerating oral intake. DS: Summary Hospital Course Hospital Course: Date of admission: 02/09/2023 Date of discharge: 02/13/2023 Sehlly Mckeon is a 67 year old female with a history of hypertension, hyperlipidemia, GERD, diverticulitis, and fibromyalgia who presented to the emergency department on 02/09/2023 with complaints of nausea, vomiting, and diarrhea. On presentation to the emergency department, she was mildly tachycardic and tachypneic with additional vital signs stable, WBC 11.3, H&H elevated, creatinine 2.2, BUN 39, and CT of abdomen/pelvis revealed fluid-filled and distended stomach of unclear etiology with liquid stool throughout much of the colon. She was admitted to the hospitalist service for further evaluation and management. Please see above for further details. She had symptomatic improvement following appropriate antibiotics and diarrhea improved. Diet was slowly advanced and patient was eventually able to tolerate a bland diet. She will continue course of antibiotics at home and will follow-up with her PCP in 1 week for continued monitoring. Her renal function returned back to baseline. Given overall improvement, she was determined to no longer require inpatient care and was discharged in hemodynamically stable condition on 02/13/2023. Time Spent with Patient Time attestation: Total time spent providing and/or coordinating discharge services: 45 minutes Time spent: Greater than 30 minutes Exam Narrative: General: well-nourished, well-appearing 67-year-old female, sitting up in bed, comfortable, NARD Neuro: awake, alert and oriented x4, speech clear, no focal neuro deficits noted HEENMT: normocephalic, atraumatic, EOMI, sclerae anicteric Respiratory: clear to auscultation bilaterally, nonlabored breathing Cardio: regular rate, regular rhythm with S1-S2 Abdomen: protuberant, normoactive bowel sounds, soft, nontender to palpation Extremities: no edema, erythema, or tenderness to palpation, DP pulses 2+ bilaterally Skin: no rashes or lesions, warm and dry Psych:
--- NOTE | 2023-02-13 14:04 | PCCCNOTE ---
On 02/13/23, the student, [Antonette Solis], provided care and completed [facility] documentation on this patient. I have reviewed the student's documentation and agree with the findings.
== END 2023-02-13 15:15 | disposition home or self-care (01) | DRG 872 ==
LOC: ANHED 08:35 → ANH3MEDSUR 09:08
PROVIDERS: Emergency Medicine; Nurse Practitioner; Physician Assistant; Admitting Provider Chiropractor; Emergency Provider Emergency Medicine; PCP Family Medicine; Visit Provider Physician Assistant
DX: A41.89 Other specified sepsis (principal); N17.9 Acute kidney failure, unspecified; A08.4 Viral intestinal infection, unspecified; I10 Essential (primary) hypertension; E78.5 Hyperlipidemia, unspecified; E86.0 Dehydration; K52.9 Noninfective gastroenteritis and colitis, unspecified; K21.9 Gastro-esophageal reflux disease without esophagitis; M19.91 Primary osteoarthritis, unspecified site; R73.9 Hyperglycemia, unspecified; R74.01 Elevation of levels of liver transaminase levels; Z20.822 Contact with and (suspected) exposure to COVID-19; Z88.0 Allergy status to penicillin
CPT/HCPCS: 36415; 71045; 74176; 76775; 80048; 80053; 80076; 81001; 82570; 83036; 83605; 83690; 83735; 83935; 84145; 84300; 84439; 84443; 84480; 84540; 85025; 85027; 85055; 87040; 87045; 87086; 87088; 87269; 87272; 87427; 87493; 96361; 96365; 96375; 96376; 97161; 97165; 99285; A9270; G0378; J1956; J2405; J3475; J7030; J7120; U0003; U0005

== ENCOUNTER 2024-06-03 10:15 | Outpatient (CLI) | payer MEDICARE, OTHER, SELFPAY ==
--- NOTE | ~2024-06-03 | DEXA_ITS ---
Bone Density Report Name: ULICES VALDERRAMA Age: 68 Sex: Female Ethnicity: White Date of : 1955 Indication: postmenopausal; screening for osteoporosis; height loss; rheumatoid arthritis; secondary osteoporosis; Referring Provider: UNKNOWN, UNKNOWN Study: Bone densitometry was performed. Exam Date: June 03, 2024 Accession number: [id number] Bone Density: Region BMD T-score Z-score Classification AP Spine(L1-L4) 0.823 -2.0 0.1 Osteopenia Femoral Neck (Left) 0.655 -1.7 0.0 Osteopenia Total Hip (Left) 0.855 -0.7 0.8 Normal Femoral Neck (Right) 0.606 -2.2 -0.4 Osteopenia Total Hip (Right) 0.905 -0.3 1.2 Normal Total Hip Mean 0.880 -0.5 1.0 Normal World Health Organization criteria for BMD impression classify patients as: Normal (T-score at or above -1.0), Osteopenia (T-score between -1.0 and -2.5), or Osteoporosis (T-score at or below -2.5). 10-year Fracture Risk(1): Major Osteoporotic Fracture 13% Hip Fracture 2.5% Reported Risk Factors: [place] (), Neck BMD=0.606, BMI=50.4, rheumatoid arthritis, secondary osteoporosis Input outside FRAX(R) limits. Adjusted to:Lmfkxr=368 kg (1) FRAX(R) Version 3.08. Fracture probability calculated for an untreated patient. Fracture probability may be lower if the patient has received treatment. Clinical Information Provided by Patient: Has rheumatoid arthritis Has secondary osteoporosis Has used the following medications: Vitamin D Patient maximum height was 63 Menopause Age: 47 No regular weight bearing exercise Drinks caffeinated beverages Onset of menses at age 10 Number of children 2 Impression: The patient has low bone mass, based on the Right Femoral Neck T-score. The patient has an estimated ten-year risk of hip fracture of 2.5% and an estimated ten-year risk of major fracture of 13%, based on the WHO FRAX algorithm. Discussion: BONE DENSITY IS LOW AT ONE OR MORE SKELETAL SITES. This patient's lowest T-score is low at one or more skeletal sites. It meets the World Health Organization's (WHO) criteria for ?low bone mass? (T-score between -1.0 and -2.5). The patient's 10-year risk of fracture as calculated by FRAX is less than the threshold where pharmacological therapy is recommended by the National Osteoporosis Foundation (NOF). However, all treatment decisions require clinical judgment and consideration of individual patient factors, including patient preferences, comorbidities, previous drug use, risk factors not captured in the FRAX model (e.g., frailty, falls, vitamin D deficiency, increased bone turnover, interval significant decline in bone density) and possible under or overestimation of fracture risk by FRAX. The patient should follow a healthful lifestyle (good nutrition with adequate calcium and vitamin D, and appro
== END 2024-06-03 10:16 | disposition home or self-care (01) ==
LOC: ANHIMG 10:16
PROVIDERS: PCP Family Medicine
DX: M85.89 Other specified disorders of bone density and structure, multiple sites (principal); Z78.0 Asymptomatic menopausal state; Z13.820 Encounter for screening for osteoporosis
CPT/HCPCS: 77080

== ENCOUNTER 2024-08-19 14:52 | Outpatient (CLI) | payer MEDICARE, OTHER, SELFPAY ==
--- NOTE | ~2024-08-19 | MM_ITS ---
EXAMINATION: MM screening yennifer BI w robles HISTORY: Screening TECHNIQUE: Craniocaudal and mediolateral oblique 3-D tomosynthesis images were obtained and synthetic 2-D images were generated. CAD analysis was submitted and interpreted. COMPARISON: No prior studies for comparison. BREAST PARENCHYMAL COMPOSITION: Not Dense. The breasts are almost entirely fatty. FINDINGS: There is no evidence of suspicious mass, calcification, or architectural distortion to sugg est malignancy in either breast. There has been no suspicious interval change. IMPRESSION: 1. No mammographic evidence of malignancy. 2. Recommend routine screening mammography in one year. BI-RADS Category 1: Negative Reviewed, dictated and finalized at location B.
== END 2024-08-19 14:53 | disposition home or self-care (01) ==
LOC: ANHIMG 14:55
PROVIDERS: PCP Family Medicine; Visit Provider Family Medicine
DX: Z12.31 Encounter for screening mammogram for malignant neoplasm of breast (principal)
CPT/HCPCS: 77063; 77067

== ENCOUNTER 2024-09-11 09:36 | Emergency (ER) | payer MEDICARE, OTHER, SELFPAY ==
--- NOTE | ~2024-09-11 | CT_ITS ---
EXAMINATION: CT abdomen pelvis w con DATE: 09/11/2024 10:38 INDICATION: Left upper quadrant abdominal pain. TECHNIQUE: Computed tomography (CT) of the abdomen and pelvis was performed with 100 mL Omnipaque 350 intravenous contrast. Automated exposure control and iterative reconstruction technique were employe d. The dose-length product was 1476.04 mGy-cm. COMPARISON: CT abdomen and pelvis 02/09/2023 FINDINGS: The visualized portions of the lung bases demonstrate nodules in the lower lobes measuring up to 9 mm on the right. There is mild scarring in right lower lobe. No pleural effusion. The heart s ize is normal. No pericardial effusion. The liver and spleen are normal. The gallbladder is distended . The pancreas and adrenal glands are normal. There is cortical thinning of the kidneys. There is sca ttered diverticula in the colon. There is fat stranding around a diverticulum of distal descending co kaylee, consistent with diverticulitis. The appendix is normal. There are no pathologically enlarged lym ph nodes. There is no free intraperitoneal fluid. There is mild thoracic and lumbar spondylosis. IMPRESSION: 1. Diverticulitis of distal descending colon. No perforation or abscess. 2. New nodules in the lower lobes measuring up to 9 mm, consistent with infection or less likely meta static disease. Chest CT is recommended in 1-3 months. 3. Gallbladder distention, which may be secondary to fasting. Reviewed, dictated and finalized at location A. IMPRESSION: 1. Diverticulitis of distal descending colon. No perforation or abscess. 2. New nodules in the lower lobes measuring up to 9 mm, consistent with infecti on or less likely metastatic disease. Chest CT is recommended in 1-3 months. 3. Gallbladder distention, which may be secondary to fasting.
[2024-09-11 09:39] VITALS: BP 159/100; PULSE 74; RESP 18; TEMP 37.1; O2SAT 98
[2024-09-11 10:05] LABS: Basophils Percent Auto 0.4 % (0.2-1.2); Eosinophils Absolute Auto 0.1 K/mm3 (0-0.3); Eosinophils Percent Auto 1.5 % (0-4.4); Hematocrit 42.6 % (37.0-47.0); Immature Granulocyte Absolute 0.03 K/mm3 (0.00-0.031); Immature Granulocyte Percent A 0.4 % (0-0.5); Lymphocytes Absolute Auto 1.54 K/mm3 (0.9-3.2); Lymphocytes Percent Auto 20.4 % (18.3-44.2); Mean Corpuscular HGB Conc 32.9 g/dl (32-36); Mean Corpuscular Hemoglobin 31.5 pg (26-34); Mean Corpuscular Volume 95.9 fl (80-100); Mean Platelet Volume 9.8 fl (7.4-10.4); Monocytes Absolute Auto 0.9 K/mm3 (0.1-0.6); Monocytes Percent Auto 11.7 % (2.6-8.5); Neutrophils Percent Auto 65.6 % (45.5-73.1); Platelet Count Result 205 k/mm3 (150-375); Red Blood Count 4.44 M/mm3 (4.2-5.4); Red Cell Distribution Width 13.2 % (11.5-14.5); White Blood Count 7.5 K/mm3 (4.5-10.0)
[2024-09-11 10:14] LABS: Alanine Aminotransferase 23 U/L (6-35); Alkaline Phosphatase 88 U/L (38-126); Anion Gap 7 mmol/L (4-12); Aspartate Amino Transferase 24 U/L (14-36); Blood Urea Nitrogen 14 mg/dL (7-17); Calcium 9.9 mg/dL (8.4-10.2); Carbon Dioxide 27 mmol/L (22-30); Chloride 104 mmol/L (98-107); Estimated CRCL calculation 53 ml/min; Estimated Glomerular Filt Rate 49; Glucose 146 mg/dL (65-110); Lipase 62 U/L (23-300); Potassium 4.1 mmol/L (3.4-5.0); Sodium 138 mmol/L (137-145)
--- NOTE | 2024-09-11 10:29 | ED_ITS ---
HPI - Abdominal Pain General Chief Complaint: Abdominal Pain Stated Complaint: l. flank pain, LLQ abd pain Time Seen by Provider: 09/11/24 09:58 Source: patient Mode of arrival: ambulatory Limitations: no limitations History of Present Illness HPI narrative: This is a 69-year-old female, with history of hypertension who presents emergency department complaining of left upper quadrant abdominal pain for the past 2 days. The patient describes pain as sharp, moderate, aggravated by movement. She denies associated dysuria, hematuria, fevers, vomiting though does have intermittent nausea. She has no other complaints at this time. Related Data Home Medications Medication Instructions Recorded Confirmed acidophilus 7.5 mg (30 million 1 cap PO DAILY 02/18/21 02/09/23 cell)-pectin, citrus 100 mg capsule ascorbate calcium (vitamin C) 500 500 mg PO DAILY 02/18/21 02/09/23 mg tablet ascorbic acid 100 mg-elderberry 1 tablet PO DAILY 02/18/21 02/09/23 fruit 50 mg chewable tablet (Airborne (elderberry)) atenolol 100 mg tablet 100 mg PO DAILY 02/18/21 02/09/23 biotin 5,000 mcg disintegrating 10,000 mcg PO DAILY 02/18/21 02/09/23 tablet cholecalciferol (vitamin D3) 125 125 mcg PO DAILY 02/18/21 02/09/23 mcg (5,000 unit) capsule cranberry fruit concentrate 250 mg 250 mg PO DAILY 02/18/21 02/09/23 chewable tablet (Azo Cranberry) lisinopril 20 mg tablet 20 mg PO DAILY 02/18/21 02/09/23 lutein 40 mg capsule 40 mg PO DAILY 02/18/21 02/09/23 omeprazole 20 mg capsule,delayed 20 mg PO DAILY 02/18/21 02/09/23 release taurine 500 mg capsule 1,000 mg PO DAILY 02/18/21 02/09/23 vitamin E (dl, acetate) 180 mg 400 unit PO DAILY 02/18/21 02/09/23 (400 unit) capsule zinc acetate 50 mg (zinc) capsule 50 mg PO DAILY 02/18/21 02/09/23 (Galzin) simvastatin 20 mg tablet 20 mg PO HS 02/09/23 02/09/23 Allergies Allergy/AdvReac Type Severity Reaction Status Date / Time Penicillins Allergy Unknown Unknown Verified 09/11/24 09:38 Review of Systems Review of Systems: All systems reviewed & are unremarkable except as noted in HPI and below PMFSH Past Medical History Medical History Degenerative disc disease Diverticulitis Fibromyalgia Gastroesophageal reflux disease Hyperlipidemia Hypertension Kidney stones Osteoarthritis Surgical History Surgical History History of colonoscopy (10/2011) Internal hemorrhoids and diverticulosis. Per Dr. Granados. History of tubal ligation (1981) Family History Family History Sibling Hypertension Family history of elevated blood lipids Son Spondylarthritis Social History Social History Social History: Surrogate medical decision maker: Jr Mckeon, spouse. Code status: Full code. Smoking status: Never smoker Second hand tobacco smoke exposure: No Alcohol intake: never Substance use: never Substance use type: does not use Lack of Transportation: No Lack of Food: Never True Current Housing: I Have Housing Concerned About Future Housing: No Difficulty Paying Gas/Electric Bills: No Difficulty Paying for Meds: No Currently Unemployed: No Education: High School Diploma/GED Difficulty w/ Childcare or Family Care: No Living arrangements: with family Occupation/Education: retired Spiritual care concerns: No Agree to blood products: No Exam Narrative: GENERAL: Well-developed, well-nourished, and in no acute distress. HEAD: Normocephalic, atraumatic. EYES: PERRLA and EOMI. CHEST: Clear to auscultation. No respiratory distress. No wheezes rales or rhonchi HEART: Regular rate and rhythm. No murmur heard. Normal peripheral pulses. ABDOMEN: Soft, left upper quadrant tenderness to palpation with no rebound or guarding, nondistended, normal active bowel sounds. Left CVA tenderness to palpation, no right CVA EXTREMITIES: Normal range of motion. No edema. SKIN: Warm, dry, no rash. NEURO: Alert and oriented x3. No focal deficit. Moving all 4 limbs spontaneously PSYCH: Normal mood and affect. Course Course Emergency Course: 11:10 - CBC unremarkable. Chemistries demonstrate baseline elevation of creat inine at 1.1 but is otherwise unremarkable. Urinalysis demonstrates trace leukocyte esterase but is otherwise unremarkable. CT abdomen pelvis demonstrates right sided colon diverticulitis without changes concerning for abscess or perforation. There are incidentally demonstrated right lower lung n odules measuring 9 mm with Radiology recommendation for repeat scan in 1-3 months. Will discharge with oral antibiotics and primary care follow-up. I discussed the findings and recommendations with the patient. Discussed return and emergency precautions including signs/symptoms of acute abdomen and intractable vomiting. The patient voiced understanding and agreement with the plan. All questions answered to her satisfaction. Vital Signs Vital signs: Vital Signs Temperature 98.7 F 09/11/24 09:39 Pulse Rate 74 09/11/24 09:39 Respiratory Rate 18 09/11/24 09:39 Blood Pressure 159/100 H 09/11/24 09:39 Pulse Oximetry 98 09/11/24 09:39 Oxygen Delivery Room Air 09/11/24 09:39 Temperature 98.7 F 09/11/24 09:39 Pulse Rate 74 09/11/24 09:39 Respiratory Rate 18 09/11/24 09:39 Blood Pressure 159/100 H 09/11/24 09:39 Pulse Oximetry 98 09/11/24 09:39 Oxygen Delivery Room Air 09/11/24 09:39 MDM - Abdominal Pain MDM Narrative Medical decision making narrative: Plan: Labs, imaging, pain control, reassess Differential Diagnosis Differential diagnosis: Likely abdominal pain, calculus of kidney, constipation, diverticulitis, gastroenteritis, pancreatitis, small bowel obstruction and other (UTI, pyelonephritis, metabolic abnormality, other) Lab Data 09/11/24 09:55 09/11/24 09:55 Labs: Lab Results 09/11/24 09/11/24 Range/Units 09:55 10:46 WBC 7.5 (4.5-10.0) K/mm3 RBC 4.44 (4.2-5.4) M/mm3 Hgb 14.0 (12.0-15.0) g/dL Hct 42.6 (37.0-47.0) % MCV 95.9 (80-100) fl MCH 31.5 (26-34) pg MCHC 32.9 (32-36) g/dl RDW 13.2 (11.5-14.5) % Plt Count 205 (150-375) k/mm3 MPV 9.8 (7.4-10.4) fl Immature Gran % (Auto) 0.4 (0-0.5) % Neut % (Auto) 65.6 (45.5-73.1) % Lymph % (Auto) 20.4 (18.3-44.2) % [place] % (Auto) 11.7 H (2.6-8.5) % Eos % (Auto) 1.5 (0-4.4) % Baso % (Auto) 0.4 (0.2-1.2) % Lymph # (Auto) 1.54 (0.9-3.2) K/mm3 [place] # (Auto) 0.9 H (0.1-0.6) K/mm3 Eos # (Auto) 0.1 (0-0.3) K/mm3 Baso # (Auto) 0.0 (0.0-0.1) K/mm3 Abs Immat Gran (auto) 0.03 (0.00-0.031) K/mm3 Absolute Neuts (auto) 5.0 (1.3-6.7) K/mm3 Absolute Nucleated RBC 0.000 (0.0-0.012) K/mm3 Nucleated RBC % 0.0 (0.0-0.2) % Sodium 138 (137-145) mmol/L Potassium 4.1 (3.4-5.0) mmol/L Chloride 104 (98-107) mmol/L Carbon Dioxide 27 (22-30) mmol/L Anion Gap 7 (4-12) mmol/L BUN 14 D (7-17) mg/dL Creatinine 1.10 H (0.7-1.0) mg/dL Estim Creat Clear Calc 53 ml/min Estimated GFR 49 L (59 - ) Glucose 146 H (65-110) mg/dL Calcium 9.9 (8.4-10.2) mg/dL Total Bilirubin 1.0 (0.2-1.3) mg/dL AST 24 (14-36) U/L ALT 23 (6-35) U/L Alkaline Phosphatase 88 (38-126) U/L Total Protein 8.0 (6.3-8.2) g/dL Albumin 4.0 (3.5-5.1) g/dL Lipase 62 (23-300) U/L Urine Color Yellow (Yellow) Urine Appearance Clear (Clear) Urine pH 6.5 (5.0-9.0) Ur Specific [place] 1.010 (1.001-1.035) Urine Protein Negative (Negative) mg/dL Urine Glucose (UA) Negative (Negative) mg/dL Urine Ketones Negative (Negative) mg/dL Ur Blood (Man) Negative (Negative) Urine Nitrate Negative (Negative) Urine Bilirubin Negative (Negative) Urine Urobilinogen 0.2 (<2.0) mg/dL Leukocyte Esterase Rfl Trace H (Negative) ELDON/UL Urine RBC 0-2 (0-2) /hpf Urine WBC 0-5 (0-3) /hpf Ur Squamous Epith Cells None seen (Few) /hpf Urine Bacteria None seen /hpf Urine Casts 0-2 Imaging Data Radiologist's impression: ITS Impressions Abdomen/Pelvis CT 09/11/24 10:39 IMPRESSION: 1. Diverticulitis of distal descending colon. No perforation or abscess. 2. New nodules in the lower lobes measuring up to 9 mm, consistent with infection or less likely metastatic disease. Chest CT is recommended in 1-3 months. 3. Gallbladder distention, which may be secondary to fasting. Discharge Plan Discharge Clinical Impression: Abdominal pain, acute, left upper quadrant, Diverticulitis, Lung nodule Patient Disposition: Home, Self-Care Condition: Stable Instructions: Antibiotic Form, Diverticulitis (ED) Additional Instructions: You were seen in the emergency department. Your CT scan demonstrated diverticuli tis on the left. I recommend oral antibiotics, nausea medications, Tylenol/ibuprofen as needed for pain and follow up with her primary care doctor. It also demonstrated right lower lung nodules measuring 9 mm. I recommend following up with your primary care doctor and repeating a CT scan in 1-3 m [facility]. If you develop severe abdominal pain, abdominal pain with fevers, persistent vomiting, or if you have other emergent concerns for life, limb, or eyesight, return to the emergency department. Patient Language: Mac[place] Prescriptions: New metronidazole 500 mg tablet 500 mg PO Q12H Qty: 14 0RF ciprofloxacin HCl 500 mg tablet 500 mg PO Q12H Qty: 14 0RF prochlorperazine maleate 10 mg tablet 10 mg PO Q8H PRN (Reason: nausea and vomiting) 2 Days Qty: 9 0RF No Action omeprazole 20 mg capsule,delayed release(DR/EC) 20 mg PO DAILY lisinopril 20 mg tablet 20 mg PO DAILY atenolol 100 mg tablet 100 mg PO DAILY vitamin E (dl, acetate) 400 unit capsule 400 unit PO DAILY lutein 40 mg capsule 40 mg PO DAILY biotin 5,000 mcg tablet,disintegrating 10,000 mcg PO DAILY taurine 500 mg capsule 1,000 mg PO DAILY cholecalciferol (vitamin D3) 125 mcg (5,000 unit) capsule 125 mcg PO DAILY ascorbic acid-elderberry fruit [Airborne (elderberry)] 100-50 mg tablet,chewable 1 tablet PO DAILY ascorbate calcium (vitamin C) 500 mg tablet 500 mg PO DAILY Galzin 50 mg (zinc) capsule 50 mg PO DAILY Azo Cranberry 250 mg tablet,chewable 250 mg PO DAILY acidophilus-pectin, citrus 7.5 mg (30 mill cell)-100 mg capsule 1 cap PO DAILY simvastatin 20 mg tablet 20 mg PO HS levofloxacin 750 mg tablet 750 mg PO DAILY Qty: 3 0RF metronidazole 500 mg tablet 500 mg PO Q8H 3 Days Qty: 9 0RF Follow-up/Referrals: Harms,Lobo Borges M.D. [Primary Care Provider] - 1 Week Time of Disposition: 11:10
[2024-09-11 11:04] LABS: Add Urine Microscopic? YES; Appearance Urine Clear (Clear); Bacteria Urine None Seen /hpf; Bilirubin Urine Negative (Negative); Blood Urine Negative (Negative); Color Urine Yellow (Yellow); Glucose Urine UA Negative (Negative); Ketones Urine Negative (Negative); Leukocyte Esterase Ur Trace LEU/UL (Negative); Nitrate Urine Negative (Negative); Non Pathogenic Casts 0-2; Protein Urine Negative (Negative); RBC Urine 0-2 /hpf (0-2); Squamous Epithelial Cell Urine None Seen /hpf (Few); Urobilinogen Urine 0.2 mg/dL (<2.0); WBC Urine 0-5 /hpf (0-3); pH Urine 6.5 (5.0-9.0)
[2024-09-11 11:23] VITALS: BP 140/74; PULSE 63; RESP 12; TEMP 37.1; O2SAT 96
== END 2024-09-11 11:24 | disposition home or self-care (01) ==
PROVIDERS: Emergency Medicine; Emergency Provider Preventive Medicine Aerospace Medicine; PCP Family Medicine
DX: R10.12 Left upper quadrant pain (principal); K57.92 Diverticulitis of intestine, part unspecified, without perforation or abscess without bleeding; R91.1 Solitary pulmonary nodule; K21.9 Gastro-esophageal reflux disease without esophagitis; E78.5 Hyperlipidemia, unspecified; I10 Essential (primary) hypertension
CPT/HCPCS: 36415; 74177; 80053; 81001; 83690; 85025; 99284; Q9967